=== PATIENT | male | born 1940 | race Caucasian/White ===

== ENCOUNTER 2019-03-25 09:43 | Inpatient (IN) ==
[2019-03-18 15:31] LABS: Appearance,Urine CLEAR; Bilirubin,Urine NEG (NEG); Color,Urine STRAW; Culture Indicated,Urine NO; Glucose,Urine (UA) NEGATIVE (NEG); Ketones,Urine NEG (NEG); Leukocyte Esterase,Urine NEG /uL (NEG); Nitrate,Urine NEG (NEG); Protein,Urine NEG (NEG); Urine Blood NEG mg/dL (<0.03); Urobilinogen,Urine NEG (NEG)
[2019-03-18 16:31] LABS: Blood Urea Nitrogen 17 mg/dl (8-23); Calcium 8.9 mg/dl (8.6-10.4); Carbon Dioxide 23 mmol/L (22-30); Chloride 106 mmol/L (96-108); Glomerular Filtration Rate 65; Glucose 81 mg/dL (70-105)
[2019-03-18 16:52] LABS: Basophils # (Auto) 0 K/mcL (0.0-0.3); Basophils % (Auto) 0.6 % (0.0-2.0); Eosinophils # (Auto) 0.3 K/mcL (0.0-0.7); Eosinophils % (Auto) 5.2 % (0.0-7.0); Granulocytes % (Auto) 47.1 % (38.0-78.0); Hematocrit 43.4 % (41.0-55.0); Hemoglobin 14.1 g/dL (13.5-16.5); Lymphocytes # (Auto) 2.3 K/mcL (1.5-4.8); Lymphocytes % (Auto) 36.6 % (15.5-49.0); Mean Cell Volume 92.1 fL (80.0-100.0); Mean Corpuscular HGB Conc 32.5 g/dL (31.0-36.0); Mean Platelet Volume 8.8 fL (7.4-10.4); Monocytes # (Auto) 0.7 K/mcL (0.1-0.9); Monocytes % (Auto) 10.5 % (1.0-12.0); Platelet Count 173 K/mcL (140-440); RBC 4.72 M/mcL (4.50-5.90); Red Cell Distribution Width 13.4 % (11.5-14.5); WBC 6.3 K/mcL (4.5-11.0)
[2019-03-18 17:17] LABS: Prothrombin Time 12.7 sec (11.9-14.5)
[~2019-03-25 09:43] MED LIST: 0.9 % SODIUM CHLORIDE 9 ML, KETOROLAC 30 MG, ROPIVACAINE HCL/PF 49.5 ML, EPINEPHrine 0.... IJ SCH; ACETAMINOPHEN 500 MG TABLET PO SCH; CELECOXIB 200 MG CAPSULE PO SCH; IPRATROPIUM/ALBUTEROL 3 ML AMPUL.NEB NEB PRN; PREGABALIN 75 MG CAPSULE PO SCH; SCOPOLAMINE 1 PATCH PATCH TOPICAL PRN; ceFAZolin 2 GM in DEXTROSE 5% IN WATER 50 ML IV SCH; oxyCODONE 10 MG TAB.ER.12H PO SCH
[2019-03-25] MEDS ORDERED: DEXAMETHASONE 10 MG/ML VIAL IV ONE (12:30)
[2019-03-25] MEDS ORDERED: MIDAZOLAM 2 MG/2 ML VIAL IV ONE (12:30)
[2019-03-25] MEDS ORDERED: PROPOFOL 200 MG/20 ML VIAL IV ONE (12:30)
[2019-03-25] MEDS ORDERED: ROPIVACAINE HCL/PF 30 ML VIAL IJ ONE (12:30)
[2019-03-25] MEDS ORDERED: KETAMINE 100 MG/ML ML IV ONE (12:30)
[2019-03-25] MEDS ORDERED: GLYCOPYRROLATE 0.2 MG/ML VIAL IV ONE (12:30)
[2019-03-25] MEDS ORDERED: ONDANSETRON 4 MG/2 ML VIAL IV ONE (12:30)
[2019-03-25] MEDS ORDERED: LIDOCAINE HCL/PF 100 MG/5 ML SYRINGE IV ONE (12:30)
[2019-03-25] MEDS ORDERED: TRANEXAMIC ACID 1,000 MG/10 ML VIAL IV ONE (12:30)
[2019-03-25] MEDS ORDERED: BUPIVACAINE 0.5% 50 ML VIAL IJ ONE (13:31)
[2019-03-25] MEDS ORDERED: GENTAMICIN SULFATE 800 MG/20 ML VIAL IR ONE (13:31)
[2019-03-25] MEDS ORDERED: DEXAMETHASONE 10 MG/ML VIAL IM ONE (13:31)
[2019-03-25] MEDS ORDERED: TRIAMCINOLONE ACETONIDE 40 MG/ML VIAL INTRAARTIC ONE (13:31)
[2019-03-25] MEDS ORDERED: MEPERIDINE 25 MG/ML SYRINGE IV PRN (13:53)
[2019-03-25] MEDS ORDERED: ePHEDrine 50 MG/ML AMPUL IV PRN (13:53)
[2019-03-25] MEDS ORDERED: ONDANSETRON 4 MG/2 ML VIAL IV PRN ×2 (13:53→14:04)
[2019-03-25] MEDS ORDERED: METHOCARBAMOL 1,000 MG/10 ML VIAL IV PRN (13:53)
[2019-03-25] MEDS ORDERED: fentaNYL 100 MCG/2 ML VIAL IV PRN (13:53)
[2019-03-25] MEDS ORDERED: IPRATROPIUM/ALBUTEROL 3 ML AMPUL.NEB NEB PRN (13:53)
[2019-03-25] MEDS ORDERED: LACTATED RINGERS 1,000 ML IV SCH (14:00)
[2019-03-25] MEDS ORDERED: POLYETHYLENE GLYCOL 3350 17 GM PACKET PO PRN (14:04)
[2019-03-25] MEDS ORDERED: BISACODYL 10 MG SUPP.RECT PR PRN (14:04)
[2019-03-25] MEDS ORDERED: ACETAMINOPHEN 325 MG TABLET PO PRN (14:04)
[2019-03-25] MEDS ORDERED: HYDROmorphone 2 MG/ML VIAL IV PRN (14:04)
[2019-03-25] MEDS ORDERED: TRANEXAMIC ACID 1,000 MG/10 ML VIAL IV SCH (14:04)
[2019-03-25] MEDS ORDERED: MAGNESIUM HYDROXIDE 30 ML ORAL.SUSP PO PRN (14:04)
[2019-03-25] MEDS ORDERED: BENZOCAINE/MENTHOL 1 LOZENGE PO PRN (14:04)
[2019-03-25] MEDS ORDERED: FLEETS ADULT ENEMA PR PRN (14:04)
--- NOTE | 2019-03-25 14:04 | Brief Operative Note ---
Date of procedure: 03/25/19 Pre-op diagnosis: left knee djd severe Post-op diagnosis: same Procedure: left tka with junior robot Grafts/Implants: Yes Anesthesia: LIANA Surgeon: Yohannes Chavez Emergency Manager: Dominik Vargas Estimated blood loss (cc): 50 Tourniquet Time (Minutes): 60 Specimens Removed/Pathology: none sent Condition: stable Disposition: PACU
[2019-03-25] MEDS ORDERED: CARBOXYMETHYLCELLULOSE SODIUM 1 EACH DROPER.GEL OU PRN (14:07)
[2019-03-25] MEDS ORDERED: METHOCARBAMOL 750 MG TABLET PO PRN (14:07)
[2019-03-25] MEDS ORDERED: NITROGLYCERIN 0.4 MG TAB.SUBL SL PRN (14:20)
--- NOTE | 2019-03-25 15:37 | XRay Report ---
CLINICAL INFORMATION: Post-Op Total Knee COMPARISON: Preoperative films 05/16/2013. FINDINGS: Total knee prostheses is anatomically aligned. No osseous abnormalities. Periarticular gas and soft tissue swelling seen in the expected IMPRESSION: Negative Interpreted and Authenticated by: Eliseo Viera 03/25/19
[2019-03-25] MEDS: ALBUTEROL SULFATE 1 PUFF INHALER INH PRN ×2 (17:10→18:22)
[2019-03-25] MEDS: KETOROLAC 15 MG/ML VIAL IV SCH ×2 (17:10→23:53)
[2019-03-25] MEDS: HYDROcodone/APAP 10/325MG TABLET PO PRN ×2 (17:57→21:16)
[2019-03-25] MEDS: 0.45 % SODIUM CHLORIDE 1,000 ML IV SCH (17:58)
[2019-03-25] MEDS: ceFAZolin 1 GM VIAL IV SCH (20:02)
[2019-03-25] MEDS ORDERED: ATORVASTATIN 20 MG TABLET PO SCH (21:00)
[2019-03-25] MEDS ORDERED: TAMSULOSIN 0.4 MG CAPSULE PO SCH (21:00)
[2019-03-25] MEDS ORDERED: TEMAZEPAM 15 MG CAPSULE PO PRN (21:00)
[2019-03-25] MEDS ORDERED: SENNOSIDES 1 TABLET PO SCH (21:00)
[2019-03-25] MEDS: ASPIRIN 325 MG ENTERIC COATED TABLET PO SCH (21:17)
[2019-03-25] MEDS: METOPROLOL TARTRATE 25 MG TABLET PO SCH (21:17)
[2019-03-25] MEDS: DOCUSATE SODIUM 100 MG CAPSULE PO SCH (21:17)
[2019-03-25] MEDS: 0.9 % SODIUM CHLORIDE 10 ML SYRINGE IV SCH (21:18)
[2019-03-26] MEDS: HYDROcodone/APAP 10/325MG TABLET PO PRN (03:44)
[2019-03-26] MEDS: ceFAZolin 1 GM VIAL IV SCH (03:55)
[2019-03-26] MEDS: 0.9 % SODIUM CHLORIDE 10 ML SYRINGE IV SCH (06:04)
[2019-03-26] MEDS: KETOROLAC 15 MG/ML VIAL IV SCH (06:04)
[2019-03-26] MEDS: 0.45 % SODIUM CHLORIDE 1,000 ML IV SCH (06:28)
--- NOTE | 2019-03-26 07:18 | Discharge Summary ---
Providers - Providers Patient information: Note initiated : 03/26/19 at 7:15 am Service Date, if different from initiated Date: [] Patient: Jesus Nelson 78 y/o M admitted on 03/25/19 for Left Robotic Total Knee Arthroplasty. Doing well, his pain is managed. Was up walking with PT. Chief Complaint: [left knee pain] Discharge date: 03/26/19 Hospitalization Hospital course: Pt was admitted 03/25/19 for left junior tka. Overall doing well. Pain is managed and was ambulating with PT. Vitals remain stable. Discharge diagnosis: s/p left tka Exam - Exam Incision healing: Yes Incision draining: No Clean and dry: Yes (dressing clean, dry, intact) Weight bearing status: as tolerated Ortho Discharge - TKA - Patient Instructions Diet: Regular Diet Activity: activity as tolerated Total Knee Protocol: For Total Knee: Start ROM ERNESTO with stationary bike or rocking chair. Work on gaining full extension of knee. Apply Cryocuff as instructed. Additional Dressing Instructions: May shower today with skin glue. Leave dermabond patch in place. Additional Instructions: WBAT may shower today. F/u Orthopaedics in 2 weeks. Continue aspirin 325 mg for 2 weeks following surgery for DVT prophylaxis. . - Follow Up Plan Follow Up Appointments: Diaz Castellanos PA-C [Physician Chief Operator Lock Tender] - 04/09/19 10:00 am Disposition: Home, Self-Care Prognosis: Good Rehab Potential: Good I certify that the patient requires SNF services: No Overall status at discharge: patient is progressing back to baseline Pending Studies Resuscitation Status Full Code Diet Regular Diet Start MonMar 25 Lunch Hydrocodone Bitart/Acetaminophen ([place] 10/325mg) 0 tab PO Q4HP PRN PRN Reason: PAIN LEVEL 3-6 Last Admin: 03/26/19 03:44 Dose: 2 tab Documented by: Admin: 03/25/19 21:16 Dose: 1 tab Documented by: Admin: 03/25/19 17:57 Dose: 1 tab Documented by: [email or web address] Albuterol Sulfate (Ventolin) 1 puff INH TIDP PRN PRN Reason: Shortness Of Breath Last Admin: 03/25/19 18:22 Dose: 1 puff Documented by: [email or web address] Admin: 03/25/19 17:10 Dose: 1 puff Documented by: [email or web address] Aspirin (Ecotrin) 325 mg PO BID [facility] Last Admin: 03/25/19 21:17 Dose: 325 mg Documented by: MADELIN Atorvastatin Calcium (Lipitor) 40 mg PO [facility] Last Admin: 03/25/19 21:16 Dose: 40 mg Documented by: MADELIN Docusate Sodium (Colace) 100 mg PO BID [facility] Last Admin: 03/25/19 21:17 Dose: 100 mg Documented by: MADELIN Sodium Chloride (Sodium Chloride 0.45%) 1,000 mls @ 100 mls/hr IV .Q10H [facility] Last Admin: 03/26/19 06:28 Dose: Not Given Documented by: Infusion: 03/26/19 04:00 Dose: 0 mls/hr Documented by: Admin: 03/25/19 17:58 Dose: 100 mls/hr Documented by: [email or web address] Ketorolac Tromethamine (Toradol) 15 mg IV Q6 [facility] Stop: 03/27/19 12:01 Last Admin: 03/26/19 06:04 Dose: 15 mg Documented by: Admin: 03/25/19 23:53 Dose: 15 mg Documented by: Admin: 03/25/19 17:10 Dose: 15 mg Documented by: [email or web address] Metoprolol Tartrate (Lopressor) 25 mg PO BID [facility] Last Admin: 03/25/19 21:17 Dose: 25 mg Documented by: MADELIN Senna (Senokot) 2 tab PO [facility] Last Admin: 03/25/19 21:16 Dose: 2 tab Documented by: MADELIN Sodium Chloride (Saline Flush) 10 ml IV Q8 [facility] Last Admin: 03/26/19 06:04 Dose: 10 ml Documented by: Admin: 03/25/19 21:18 Dose: Not Given Documented by: MADELIN Tamsulosin HCl (Flomax) 0.4 mg PO [facility] Last Admin: 03/25/19 21:16 Dose: 0.4 mg Documented by: MADELIN Shift Summary 03/26/19 03:08 Shift Summary by Diamante Hugo Pt is A&O x4. VSS on RA. Up to BR w/SBA, FWW. Did not ambulate in hallway this shift, but was up to BR x 3. CPM was on for approx. 3.5 hours and is at 0-85. Uses CPAP at night. Received [place] 10 mg x 2 and scheduled Toradol for pain. IV to LFA with 1/2NS @100 ml/hr. Dressing to left knee CDI. Denies nausea. Had some numbness to left toes at midnight CMS check. Voids per urinal in BR - does have some urinary hesitancy and is on Flomax. Last PVR at 0030 was 208cc. Will update with verbal report. Initialized on 03/26/19 03:08 - END OF NOTE
--- NOTE | 2019-03-26 07:29 | Orthopedic Progress Note ---
Subjective Patient information: Note initiated : 03/26/19 at 7:27 am Service Date, if different from initiated Date: [] Patient: Jesus Nelson 78 y/o M admitted on 03/25/19 for Left Robotic Total Knee Arthroplasty. Chief Complaint: [Left knee pain.] Principal diagnosis: s/p left junior tka Interval history: Pt is a 78 yo male who was admitted 03/25/19 for left junior tka with Dr. Chavez. Overall doing well this AM. States he is not having pain. He was up ambulating with PT using the walker. Denies SOB, N/V, abd pain. Pertinent ROS: negative except as noted in HPI. Objective Vital signs: Vital Signs Temp Pulse Resp BP BP Pulse Ox 03/26/19 03:30 98.3 F 66 16 120/71 94 03/25/19 23:49 97.6 F 63 16 103/61 95 03/25/19 19:48 97.5 F 83 18 129/72 95 03/25/19 18:35 97.3 F 94 H 18 132/78 96 03/25/19 18:07 96 03/25/19 17:35 98 H 18 121/78 95 03/25/19 17:05 70 18 135/76 96 03/25/19 16:25 96.7 F L 61 18 118/70 97 03/25/19 16:10 67 12 143/64 95 03/25/19 15:55 73 12 129/70 96 03/25/19 15:40 78 16 142/74 96 03/25/19 15:25 96.4 F L 73 12 137/76 93 03/25/19 15:15 97.5 F 72 16 126/62 94 03/25/19 15:00 97.4 F 71 14 110/65 99 03/25/19 14:50 61 12 123/68 99 03/25/19 14:45 62 13 118/64 96 03/25/19 14:40 63 12 125/65 98 03/25/19 14:37 97.6 F 65 10 L 124/62 95 03/25/19 10:00 98.3 F 63 18 120/67 95 Intake and Output 03/25/19 03/26/19 03/26/19 21:59 05:59 13:59 Intake Total 2340 1500 Output Total 425 525 Balance 1915 975 Intake: IV 1000 Sodium Chloride 0.45% 1,000 ml 1000 @ 100 mls/hr IV .Q10H [facility]AR[facility] Rx#: [id number] Oral 240 500 IV - Manual Only 2100 Output: Void Amount 425 525 Other: Meal Dinner Percent of Meal Consumed 100% Urine Appearance Clear Urine Color Pale Dark Yellow Urine Odor Normal Strong Weight 196 lb Intake & Output: Intake & Output 03/25/19 03/26/19 03/26/19 21:59 05:59 13:59 Intake Total 2340 1500 Output Total 425 525 Balance 1915 975 Weight 196 lb Intake: IV 1000 Sodium Chloride 0.45% 1,000 ml 1000 @ 100 mls/hr IV .Q10H [facility] Rx#: [id number] Oral 240 500 IV - Manual Only 2100 Output: Void Amount 425 525 Other: Meal Dinner Percent of Meal Consumed 100% Urine Appearance Clear Urine Color Pale Dark Yellow Urine Odor Normal Strong Dressing: Yes clean, Yes dry, Yes intact Weight bearing status: as tolerated Neurological exam IM: Yes alert Extremities exam IM: No calf tenderness, Yes neurovascular intact - Labs CBC & BMP: 03/26/19 04:33 03/18/19 13:34 Labs: Orthopedic Labs 03/18/19 13:35 PT 12.7 INR 1.0 APTT 33 03/26/19 03/18/19 04:33 13:35 Hgb 14.1 Hct 37.9 L 43.4 Assessment and Plan (1) Total knee replacement status Status: Acute
[2019-03-26] MEDS ORDERED: OMEPRAZOLE 20 MG CAPSULE PO SCH (07:30)
--- NOTE | 2019-03-26 07:55 | Operative Note ---
DATE OF OPERATION: 03/25/2019 PREOPERATIVE DIAGNOSIS: Left knee degenerative arthritis, severe. POSTOPERATIVE DIAGNOSIS: Left knee degenerative arthritis, severe. PROCEDURE: Left total knee arthroplasty with ALCIDES robot. SURGEON: Yohannes Chavez MD BILINGUAL COUNTER SALES RETAIL: Dominik Vargas PA-C. The PA's assistance was required for the safe and efficient completion of the entire case. This provider's expertise and technical skill were required throughout the case. The PA assisted with preoperative coordination, intraoperative retraction, wound closure, dressing and splint application, as well as postoperative documentation and care coordination. ESTIMATED BLOOD LOSS: 50 mL TOURNIQUET TIME: 60 minutes. SPECIMENS: None. CONDITION: Stable. DISPOSITION: To PACU. IMPLANTS: [place] total knee components. DESCRIPTION OF PROCEDURE: The patient was brought to the operating room and put to sleep with general LMA anesthesia. Once asleep, the patient had the left knee sterilely prepped and draped in the usual sterile fashion. Timeout was performed confirming the operative site by initials, consent form and x-rays. Once this was done, we then proceeded with the total knee arthroplasty. Two pins above and below the knee, registered center of hip rotation, registered medial and lateral malleoli, registered 30 points on the femur and intra-articular pins. Once we balanced the knee at 90 degrees and 15 degrees, the robot was brought in and the bony cuts were made. Once done, we then placed the [place] components into place, making this perfectly aligned on every view. We confirmed this with range of motion and stability. The patella was resurfaced as well, maximizing the coverage of the patella. We irrigated thoroughly and cemented into place the [place] components. There were no complications. Tourniquet time was 60 minutes. After the implant was dry we irrigated thoroughly once more and we closed the mid vastus approach with #1 Stratafix x2 sutures and closed the skin with 2-0 Vicryl and adhesive closure. The patient tolerated this well. There was no complication. RBH:lo Job ID: [id number] Doc ID: [id number] Yohannes Chavez MD
[2019-03-26] MEDS: DOCUSATE SODIUM 100 MG CAPSULE PO SCH (08:44)
[2019-03-26] MEDS: ASPIRIN 325 MG ENTERIC COATED TABLET PO SCH (08:44)
[2019-03-26] MEDS: METOPROLOL TARTRATE 25 MG TABLET PO SCH (08:44)
[2019-03-26] MEDS ORDERED: VITAMIN D3 5,000 UNIT CAPSULE PO SCH (09:00)
[2019-03-26] MEDS ORDERED: amLODIPine 5 MG TABLET PO SCH (09:00)
[2019-03-26] MEDS ORDERED: LOSARTAN 25 MG TABLET PO SCH (09:00)
[2019-03-26] MEDS ORDERED: FISH OIL 1,000 MG CAPSULE PO SCH (09:00)
[2019-03-26] MEDS ORDERED: MULTIVIT,THER IRON,CA,FA & MIN 1 TABLET PO SCH (09:00)
== END 2019-03-26 11:55 | disposition home or self-care (01) | DRG 470 ==
LOC: MEDSUR 09:43
PROVIDERS: ADMIT Orthopaedic Surgery; ATTEND Orthopaedic Surgery